=== PATIENT | female | born 1965 | race Caucasian/White ===

== ENCOUNTER → 2018-04-12 | Outpatient (CLI) | payer MEDICARE, OTHER ==
[~2018-04-12] MED LIST: GADOBUTROL 7.5 MMOL/7.5 ML VIAL ONE
== END | disposition home or self-care (01) ==
LOC: CFH 12:00
PROVIDERS: ATTEND Radiology Diagnostic Radiology
DX: N63.10 Unspecified lump in the right breast, unspecified quadrant (principal); Z80.3 Family history of malignant neoplasm of breast; Z85.43 Personal history of malignant neoplasm of ovary
CPT/HCPCS: A9585; C8908

== ENCOUNTER → 2020-05-13 | Outpatient (CLI) | payer MEDICARE | END | disposition home or self-care (01) | LOC: CFH 11:30 | PROVIDERS: ATTEND Nurse Practitioner Acute Care | DX: J98.4 Other disorders of lung (principal); R06.02 Shortness of breath; Q79.1 Other congenital malformations of diaphragm; Z85.43 Personal history of malignant neoplasm of ovary | CPT/HCPCS: 71046 ==